=== PATIENT | female | born 1955 | race Caucasian/White ===

== ENCOUNTER 2018-04-19 08:47 | Day surgery (SDC) | payer OTHER ==
[2018-04-19] VITALS (13 sets, daily range): BP systolic 138–156; BP diastolic 67–80; PULSE 74–96; RESP 10–18; Ht 167.6 cm; Wt 68.5 kg
[~2018-04-19] VITALS: Ht 167.6 cm; Wt 68.5 kg
[~2018-04-19 08:47] MED LIST: ASPI-817 PO; BUPIVACAINE 0.25% (MPF) 30 ML INJ INJ ONE; CEFAZOLIN 2 GM/50 ML (PMX) 50 ML IVPB SCH; GLIP5TAB13 PO; LANT3I SC; LISI10TA2 PO; OXYB5TAB PO; SOD CHLORIDE 0.9% 1,000 ML IV SCH
[2018-04-19] MEDS ORDERED: ASPI-903 PO (09:27)
[2018-04-19] MEDS ORDERED: MTF1000T PO (09:28)
[2018-04-19] MEDS ORDERED: AMLO5TAB4 PO (09:28)
[2018-04-19] MEDS ORDERED: ATOR20TA38 PO (09:29)
[2018-04-19] MEDS ORDERED: REPA1TAB5 PO (09:30)
[2018-04-19] MEDS ORDERED: LANT3I SC (09:30)
[2018-04-19] MEDS ORDERED: BUPIVACAINE 0.25% (MPF) 30 ML INJ ONE (12:23)
--- NOTE | 2018-04-19 12:41 | HPN ---
Date/Time of Note Date/Time of Note DATE: 04/19/18 TIME: 12:41 Interval H&P Admission Note Pt. seen H&P reviewed: No system changes KUN CHICAS MD Apr 19, 2018 12:41
--- NOTE | 2018-04-19 13:02 | PREAC ---
Date/Time of Note Date/Time of Note DATE: 04/19/18 TIME: 12:59 Anesthesia Eval and Record Evaluation Time Pre-Procedure Interview DATE: 04/19/18 TIME: 12:59 Age 62 Sex female NPO: 8 hrs Preoperative diagnosis Rt axillary mass Planned procedure Excision of rt axillary mass Past Medical History Past Medical History: Includes Cardio: HTN, Dyslipidemia Endo: Diabetes GI: Morbid obesity Surgery & Anesthesia Issues No known issue Meds Anticoagulation: Yes Beta Shayy within 24 hr: No Reason Beta Shayy not given: Pt. not on B-Shayy Reported Medications Repaglinide* (Repaglinide*) 1 Mg Tablet, 1 MG PO AC MEALS, TAB 04/19/18 Insulin Glargine* (Lantus*) 100 Unit/Ml Soln, 40 UNIT SC QPM, #1 VIAL 04/19/18 Atorvastatin Calcium* (Atorvastatin Calcium*) 20 Mg Tablet, 20 MG PO QHS, #30 TAB 04/19/18 Metformin* (Glucophage*) 1,000 Mg Tablet, 1000 MG PO BID, #60 TAB 04/19/18 Amlodipine Besylate* (Norvasc*) 5 Mg Tablet, 5 MG PO DAILY, TAB 04/19/18 Aspirin* (Aspirin* Chew) 81 Mg Tab.chew, 81 MG PO DAILY, TAB.CHEW 04/19/18 Discontinued Reported Medications Insulin Glargine* (Lantus*) 100 Unit/Ml Soln, 50 UNIT SC DAILY, EA 10/16/14 Lisinopril* (Lisinopril*) 10 Mg Tablet, 10 MG PO DAILY, TAB 10/16/14 Oxybutynin Chloride* (Oxybutynin Chloride* ER) 5 Mg/Blist Pack Tab.osm.24, 5 MG PO BID, TAB.SA 10/16/14 Glipizide* (Glipizide*) 5 Mg Tablet, 5 MG PO BID, TAB 10/16/14 Aspirin* (Aspirin* EC) 81 Mg Tablet.dr, 81 MG PO DAILY, TAB 10/16/14 Current Medications Cefazolin Sodium/ Dextrose 50 ml @ 100 mls/hr PRE-OP IVPB ; Start 04/19/18 at 07:00; Stop 04/19/18 at 19:00 Sodium Chloride 1,000 ml @ 75 mls/hr [id number] IV ; Start 04/19/18 at 07:00; Stop 04/19/18 at 19:00 Meds reviewed: Yes Allergies Coded Allergies: Anesthetics - Amide Type (Verified Adverse Reaction, Unknown, DIFFUCULTY BREATHING & ANXIETY, 04/19/18) PER PT Allergies Reviewed: Yes Labs/Studies Labs Reviewed: Reviewed by anesthesiologist test: N/A Studies: ECG Pre-procedure Exam Last vitals Vital Signs Date Temp Pulse Resp B/P (MAP) Pulse Ox O2 O2 Flow FiO2 Time Delivery Rate 04/19/18 97.9 92 16 156/72 97 Room Air 10:17 (100) Airway: Adequate mouth opening, Adequate thyromental dist Mallampati: Mallampati II Teeth: Normal Lung: Normal Heart: Normal ASA Physical Status ASA physical status: 3 Emergency: None Planned Anesthetic General/MAC: LMA Planned Pain Management Parenteral pain med Pre-operative Attestations Prior to commencing anesthesia and surgery, the patient was re-evaluated, there was verification of: *The patient's identity *The results of appropriate recent lab work and preoperative vital signs *The above evaluation not changing prior to induction *Anesthetic plan, risk benefits, alternative and complications discussed with patient/family; questions answered; patient/family understands, accepts and wishes to proceed. PERNELL KUHN MD Apr 19, 2018 13:02
[2018-04-19] MEDS ORDERED: MIDAZOLAM 1 MG/ML 2 ML INJ ONE (13:05)
[2018-04-19] MEDS ORDERED: BUPIVACAINE 0.25% (MPF) 30 ML INJ INJ ONE (13:38)
[2018-04-19] MEDS ORDERED: PROPOFOL 20 ML ONE (14:05)
[2018-04-19] MEDS ORDERED: LIDOCAINE 2% (SDV) 5 ML INJ ONE (14:05)
[2018-04-19] MEDS ORDERED: ONDANSETRON 4 MG INJ ONE (14:06)
[2018-04-19] MEDS ORDERED: CEFAZOLIN 1 GM INJ ONE (14:06)
--- NOTE | 2018-04-19 14:20 | OPR ---
Date/Time of Note Date/Time of Note DATE: 04/19/18 TIME: 14:12 Operative Report Procedure Date: Apr 19, 2018 Preoperative Diagnosis Large posterior thoracic/posterior axillary mass Postoperative Diagnosis Large posterior thoracic/posterior axillary mass Operation/Procedure Performed 1. Excision of large posterior thoracic/posterior axillary soft tissue mass, subfascial, 19 cm 2. Placement of drain Surgeon see signature line [employer] Professor None Anesthesia Type: general Anesthesiologist: PERNELL KUHN MD Estimated Blood Loss: minimal Transfusion none Specimen Posterior thoracic/posterior axillary mass Grafts/Implants none Tubes/Drains 15 Icelandic Kj drain Complications none Pt Condition Post Procedure: stable Disposition: PACU Indications Patient is a 62-year-old female with a history of diabetes who presented to the office complaining of a large soft tissue mass of the posterior thoracic area which extended to the posterior axillary area. This had been present for several years. It had been growing and causing increasing pain and discomfort. An MRI was done preoperatively which showed findings consistent with a lipomatous neoplasm. The patient was scheduled for elective excision for symptom relief and definitive pathological diagnosis. All risks and benefits of the procedure including, but not limited to: Wound infection, excessive bleeding, postoperative seroma/hematoma formation, mass recurrence, etc. were all explained to the patient in full detail. The patient fully understood and wished to proceed with the procedure. Informed consent was obtained. Procedure Description Patient was brought to the operating room and placed supine on the operating table. Bilateral sequential compression devices were placed on both lower extremities. A dose of broad-spectrum perioperative intravenous antibiotics was given. The mass was preoperatively marked and confirmed with the patient in the holding area. After the induction of smooth general anesthesia the patient was positioned in the left lateral decubitus position with the right side up. The posterior chest wall and axilla were then prepped and draped in standard surgical fashion. After performance of the surgical timeout and incision was made over the mass using a 10 blade scalpel. Incision was carried down through the skin and subcutaneous tissues to the level of the fascia. The fascia was then incised. A large, lipomatous neoplasm was identified subfascially. It was dissected circumferentially free of surrounding tissues and delivered through the incision. The mass was then transected at its base and passed off the field as specimen. It measured approximately 19 cm in maximal dimension. Hemostasis was then inspected for and noted to be adequate. The wound cavity was irrigated with warm saline and the irrigant returned clear. Given the large size of the mass and the resultant cavity was elected to place a 15 Icelandic round Kj drain in the area of the excisional cavity. Was brought out through a separate stab wound near the posterior axilla, secured in place using 2-0 nylon suture, and connected to bulb suction. The fascia and the deep tissues were then reapproximated using a running 2-0 Vicryl suture. Dermis was reapproximated using interrupted 3-0 Vicryl sutures. 0.25% Marcaine was injected around the incision. Incision was then reapproximated with skin luanne. Incision was clean and sterile dressings were applied as well as a drain dressing. Patient was awoken from anesthesia and transferred to recovery room in stable condition. All counts were correct at the end of case x2. KUN CHICAS MD Apr 19, 2018 14:20
[2018-04-19] MEDS ORDERED: ONDANSETRON 4 MG INJ IV PRN ×2 (14:30→15:00)
[2018-04-19] MEDS ORDERED: KETOROLAC 30 MG INJ IV PRN (14:30)
[2018-04-19] MEDS ORDERED: IBUPROFEN 600 MG TAB PO PRN (14:30)
[2018-04-19] MEDS ORDERED: HYDROCODONE/APAP (5/325) TAB PO PRN ×2 (14:30)
--- NOTE | 2018-04-19 14:34 | PAC ---
Date/Time of Note Date/Time of Note DATE: 04/19/18 TIME: 14:33 Post-Anesthesia Notes Post-Anesthesia Note Last documented vital signs Vital Signs Date Temp Pulse Resp B/P (MAP) Pulse Ox O2 O2 Flow FiO2 Time Delivery Rate 04/19/18 97.9 92 16 156/72 97 Room Air 10:17 (100) Activity: WNL Respiratory function: WNL Cardiovascular function: WNL Mental status: Baseline Pain reasonably controlled: Yes Hydration appropriate: Yes Nausea/Vomiting absent: Yes Comments IOANA:134/67, P:88, Spo2:100%, T:98,8 PERNELL KUHN MD Apr 19, 2018 14:34
[2018-04-19] MEDS ORDERED: HYDROmorphONE 1 MG/5 ML IV SYRINGE IV PRN ×2 (15:00)
[2018-04-19] MEDS ORDERED: MEPERIDINE 25 MG INJ IV PRN (15:00)
[2018-04-19] MEDS ORDERED: FENTAnyl 50 MCG/ML VIAL IV PRN (15:00)
[2018-04-19] MEDS ORDERED: hydrALAzine 20 MG INJ IV PRN (15:00)
[2018-04-19] MEDS ORDERED: METOCLOPRAMIDE 10 MG INJ IV PRN (15:00)
[2018-04-19] MEDS ORDERED: MIDAZOLAM 1 MG/ML 2 ML INJ IV PRN (15:00)
[2018-04-19] MEDS ORDERED: LABETALOL HCL 20MG INJ IV PRN (15:00)
[2018-04-19] MEDS ORDERED: DIPHENHYDRAMINE 50 MG INJ IV PRN (15:00)
== END 2018-04-19 16:13 | disposition home or self-care (01) ==
LOC: SDS 08:47
PROVIDERS: ATTEND Surgery
DX: D17.1 Benign lipomatous neoplasm of skin and subcutaneous tissue of trunk (principal); I10 Essential (primary) hypertension; E78.5 Hyperlipidemia, unspecified; E66.9 Obesity, unspecified; Z68.24 Body mass index [BMI] 24.0-24.9, adult
CPT/HCPCS: 82962; 88307; J0690; J1885; J2250; J2405; J3010